=== PATIENT | male | born 1980 | race Caucasian/White ===

== ENCOUNTER 2017-08-29 06:28 | Day surgery (SDC) | payer OTHER ==
[2017-08-29] MEDS ORDERED: ONDANSETRON PF 4 MG/2 ML VIAL. IV (07:00)
[2017-08-29] MEDS: IV RINGERS,LACTATED 1000ML 1,000 ML IV (07:00)
[2017-08-29] MEDS ORDERED: fentaNYL PF VIAL 100 MCG/2 ML VIAL IV (07:00)
[2017-08-29] MEDS ORDERED: LIDOCAINE 1% PF 2 ML VIAL. ID (07:00)
[2017-08-29] MEDS ORDERED: MORPHINE SULFATE 4 MG/ML DISP.SYRIN. IV (07:00)
[2017-08-29] MEDS ORDERED: fentaNYL PF VIAL 100 MCG/2 ML VIAL (07:39)
[2017-08-29] MEDS ORDERED: KETOROLAC 30 MG/ML INJ FOR OR. INJ (07:39)
[2017-08-29] MEDS ORDERED: SEVOFLURANE 61 TO 120 MINUTES. IH (07:39)
[2017-08-29] MEDS ORDERED: ROCURONIUM 50 MG/5 ML VIAL. (07:39)
[2017-08-29] MEDS ORDERED: MIDAZOLAM HCL/PF 2 MG/2 ML VIAL. (07:39)
[2017-08-29] MEDS ORDERED: DEXAMETHASONE SOD PHOS 20 MG/5 ML VIAL. (07:39)
[2017-08-29] MEDS ORDERED: PROPOFOL 20 ML IV (07:39)
[2017-08-29] MEDS ORDERED: ONDANSETRON PF 4 MG/2 ML VIAL. (07:39)
[2017-08-29] MEDS: CLINDAMYCIN 900MG PREMIX 50 ML IV (07:59)
[2017-08-29] MEDS: BUPIVACAINE-EPI 0.25%-1:200000 50 ML VIAL. (08:06)
[2017-08-29] MEDS ORDERED: ePHEDrine PF IN SALINE 50 MG/5 ML DISP.SYRIN IV (08:16)
[2017-08-29] MEDS ORDERED: GLYCOPYRROLATE 1 MG/5 ML VIAL. (08:21)
[2017-08-29] MEDS ORDERED: NEOSTIGMINE METHYLSULFATE 5 MG/5 ML SYRINGE. (08:22)
[2017-08-29] MEDS ORDERED: oxyCODONE/APAP 5/325 1 TAB TABLET PO (09:30)
[2017-08-29] MEDS: PROCHLORPERAZINE 10 MG/2 ML VIAL. IV (09:30)
[2017-08-29] MEDS: fentaNYL PF VIAL 100 MCG/2 ML VIAL IV (10:04)
[2017-08-29] MEDS: oxyCODONE/APAP 5/325 1 TAB TABLET PO (10:23)
[2017-08-29] MEDS ORDERED: HALOPERIDOL LACTATE 5 MG/ML VIAL. IVP (11:00)
[2017-08-29] MEDS: HALOPERIDOL LACTATE 5 MG/ML VIAL. IVP (11:05)
== END 2017-08-29 11:55 | disposition home or self-care (01) ==
LOC: SURG 06:28
DX: K81.1 Chronic cholecystitis (principal); K82.8 Other specified diseases of gallbladder; Z98.890 Other specified postprocedural states; E78.00 Pure hypercholesterolemia, unspecified; I10 Essential (primary) hypertension; Z87.01 Personal history of pneumonia (recurrent); E66.9 Obesity, unspecified; K21.9 Gastro-esophageal reflux disease without esophagitis; F41.9 Anxiety disorder, unspecified; F17.200 Nicotine dependence, unspecified, uncomplicated
CPT/HCPCS: 47562; A7015; J0780; J1100; J1630; J1885; J2250; J2270; J2405; J2704; J2710; J3010; J3490; J7030; J7120